=== PATIENT | female | born 1995 | race Caucasian/White ===

== ENCOUNTER 2016-09-03 15:48 | Emergency (ER) | payer OTHER ==
--- NOTE | 2016-09-03 17:26 | ED ---
Nausea/Vomiting/Diarrhea HPI - General Chief complaint: Nausea/Vomiting/Diarrhea Stated complaint: NVD Time Seen by Provider: 09/03/16 17:10 Source: patient, RN notes reviewed Mode of arrival: ambulatory Limitations: no limitations - History of Present Illness Initial comments: 20-year-old female presents emergency Department chief complaint nausea vomiting diarrhea. Patient states symptoms started yesterday. Patient vomited throughout the night. Patient states she started noticed some bright red blood. Patient states is on a small mom. Patient called her doctor who told her is most likely just related to the vomiting but she was still concerned. Patient denies any sick contacts. Patient denies fever, chills. She states she has some abdominal discomfort. Patient states that she thought she had some blood in her stool though she states she had 4 bowel movements that she did not know any blood. Patient denies any history of GI bleeds. Patient states she feels dehydrated. - Related Data Home Medications Medication Instructions Recorded Confirmed Insulin Glargine [Lantus] 30 unit SQ HS 09/22/14 09/03/16 Insulin Glulisine [Apidra] See Protocol SQ ACHS 09/22/14 09/03/16 Cyanocobalamin [Vitamin B-12] 500 mcg PO DAILY 09/03/16 09/03/16 lamoTRIgine [LaMICtal] 200 mg PO QAM 09/03/16 09/03/16 lamoTRIgine [LaMICtal] 300 mg PO HS 09/03/16 09/03/16 Previous Rx's Medication Instructions Recorded Ondansetron Odt [Zofran Odt] 4 mg PO Q8HR PRN #10 tab 09/03/16 Ranitidine HCl [Zantac] 150 mg PO BID #28 tab 09/03/16 Allergies Allergy/AdvReac Type Severity Reaction Status Date / Time No Known Allergies Allergy Verified 09/03/16 17:23 Review of Systems ROS Statement: Those systems with pertinent positive or pertinent negative responses have been documented in the HPI. ROS Other: All systems not noted in ROS Statement are negative. Past Medical History Past Medical History: Diabetes Mellitus, Seizure Disorder Additional Past Medical History / Comment(s): Type 1 diabetic History of Any Multi-Drug Resistant Organisms: None Reported Past Surgical History: Ear Surgery Past Anesthesia/Blood Transfusion Reactions: No Reported Reaction Past Psychological History: Bipolar, Depression Smoking Status: Never smoker Past Alcohol Use History: None Reported Past Drug Use History: None Reported - Past Family History Sister(s) Additional Family Medical History / Comment(s): brain tumor removed Mother Additional Family Medical History / Comment(s): ca General Exam Limitations: no limitations General appearance: alert, in no apparent distress Head exam: Present: atraumatic, normocephalic, normal inspection Respiratory exam: Present: normal lung sounds bilaterally. Absent: respiratory distress, wheezes, rales, rhonchi, stridor Cardiovascular Exam: Present: regular rate, normal rhythm, normal heart sounds. Absent: systolic murmur, diastolic murmur, rubs, gallop, clicks GI/Abdominal exam: Present: soft, tenderness (Minimal epigastric), normal bowel sounds. Absent: distended, guarding, rebound, rigid Back exam: Absent: CVA tenderness (R), CVA tenderness (L) Neurological exam: Present: alert, oriented X3, CN II-XII intact Course Vital Signs 09/03/16 15:50 Temperature 97.8 F Pulse Rate 100 Respiratory 20 Rate Blood Pressure 128/80 O2 Sat by Pulse 99 Oximetry Medical Decision Making - Medical Decision Making 20-year-old female presented for nausea vomiting diarrhea. Patient did have some bright red blood in her vomit per patient. Patient had no emesis here. Patient states she feels much improved hemoglobin is stable. Patient is acetone positive though her bicarb is within normal. Patient is not acidotic. Patient's blood glucose to 15 at this time. Patient was given 2 L of fluids patient is telling oral fluids in emergency department. Patient will be discharged. - Lab Data Result diagrams: 09/03/16 17:22 09/03/16 17:22 Lab Results 09/03/16 09/03/16 09/03/16 Range/Units 17:22 17:22 17:22 WBC 11.3 H (4.0-11.0) k/uL RBC 4.57 (3.80-5.40) m/uL Hgb 13.3 (11.4-16.0) gm/dL Hct 39.0 (34.0-46.0) % MCV 85.4 (80.0-100.0) fL MCH 29.1 (25.0-35.0) pg MCHC 34.0 (31.0-37.0) g/dL RDW 13.1 (11.5-15.5) % Plt Count 483 H (150-450) k/uL Neutrophils % 74 % Lymphocytes % 18 % Monocytes % 4 % Eosinophils % 2 % Basophils % 0 % Neutrophils # 8.4 H (1.3-7.7) k/uL Lymphocytes # 2.0 (1.0-4.8) k/uL Monocytes # 0.5 (0-1.0) k/uL Eosinophils # 0.2 (0-0.7) k/uL Basophils # 0.1 (0-0.2) k/uL Sodium 139 (137-145) mmol/L Potassium 4.8 (3.5-5.1) mmol/L Chloride 102 (98-107) mmol/L Carbon Dioxide 23 (22-30) mmol/L Anion Gap 14 mmol/L BUN 9 (7-17) mg/dL Creatinine 0.70 (0.52-1.04) mg/dL Est GFR (MDRD) Af Amer >60 (>60 ml/min/1.73 sqM) Est GFR (MDRD) Non-Af >60 (>60 ml/min/1.73 sqM) Glucose 317 H (74-99) mg/dL POC Glucose (mg/dL) (75-99) mg/dL POC Glu Dry Man ID Calcium 9.9 (8.4-10.2) mg/dL Total Bilirubin 0.7 (0.2-1.3) mg/dL AST 23 (14-36) U/L ALT 27 (9-52) U/L Alkaline Phosphatase 41 (38-126) U/L Total Protein 7.8 (6.3-8.2) g/dL Albumin 4.5 (3.5-5.0) g/dL Amylase 33 (30-110) U/L Lipase 28 (23-300) U/L Urine Color Yellow Urine Appearance Clear (Clear) Urine pH 6.5 (5.0-8.0) Ur Specific [place] 1.022 (1.001-1.035) Urine Protein Negative (Negative) Urine Glucose (UA) 4+ H (Negative) Urine Ketones 3+ H (Negative) Urine Blood Negative (Negative) Urine Nitrate Negative (Negative) Urine Bilirubin Negative (Negative) Urine Urobilinogen <2.0 (<2.0) mg/dL Ur Leukocyte Esterase Negative (Negative) Acetone, Qual (Negative) 09/03/16 09/03/16 Range/Units 17:22 18:44 WBC (4.0-11.0) k/uL RBC (3.80-5.40) m/uL Hgb (11.4-16.0) gm/dL Hct (34.0-46.0) % MCV (80.0-100.0) fL MCH (25.0-35.0) pg MCHC (31.0-37.0) g/dL RDW (11.5-15.5) % Plt Count (150-450) k/uL Neutrophils % % Lymphocytes % % Monocytes % % Eosinophils % % Basophils % % Neutrophils # (1.3-7.7) k/uL Lymphocytes # (1.0-4.8) k/uL Monocytes # (0-1.0) k/uL Eosinophils # (0-0.7) k/uL Basophils # (0-0.2) k/uL Sodium (137-145) mmol/L Potassium (3.5-5.1) mmol/L Chloride (98-107) mmol/L Carbon Dioxide (22-30) mmol/L Anion Gap mmol/L BUN (7-17) mg/dL Creatinine (0.52-1.04) mg/dL Est GFR (MDRD) Af Amer (>60 ml/min/1.73 sqM) Est GFR (MDRD) Non-Af (>60 ml/min/1.73 sqM) Glucose (74-99) mg/dL POC Glucose (mg/dL) 215 H (75-99) mg/dL POC Glu Dry Man ID Vivian, Megan Calcium (8.4-10.2) mg/dL Total Bilirubin (0.2-1.3) mg/dL AST (14-36) U/L ALT (9-52) U/L Alkaline Phosphatase (38-126) U/L Total Protein (6.3-8.2) g/dL Albumin (3.5-5.0) g/dL Amylase (30-110) U/L Lipase (23-300) U/L Urine Color Urine Appearance (Clear) Urine pH (5.0-8.0) Ur Specific [place] (1.001-1.035) Urine Protein (Negative) Urine Glucose (UA) (Negative) Urine Ketones (Negative) Urine Blood (Negative) Urine Nitrate (Negative) Urine Bilirubin (Negative) Urine Urobilinogen (<2.0) mg/dL Ur Leukocyte Esterase (Negative) Acetone, Qual Positive (Negative) Disposition Clinical Impression: Gastroenteritis, Hyperglycemia Disposition: HOME SELF-CARE Condition: Stable Instructions: Gastroenteritis (ED) Additional Instructions: Please return to the Emergency Department if symptoms worsen or any other concerns. Prescriptions: Ondansetron Odt [Zofran Odt] 4 mg PO Q8HR PRN #10 tab PRN Reason: Nausea Ranitidine HCl [Zantac] 150 mg PO BID #28 tab Time of Disposition: 18:50
[2016-09-03] MEDS: SODIUM CHLORIDE 0.9% 2,000 ML IV STA (17:29)
[2016-09-03] MEDS: ONDANSETRON 4 MG/2 ML VIAL IVP STA (17:30)
[2016-09-03] MEDS: PANTOPRAZOLE 40 MG/10 ML VIAL IVP ONE (17:34)
[2016-09-03 17:41] LABS: Basophils # (A) 0.1 k/uL (0-0.2); Basophils % (A) 0 %; CH 28.9; Eosinophils # (A) 0.2 k/uL (0-0.7); Eosinophils % (A) 2 %; HDW 2.56; HGB 13.3 gm/dL (11.4-16.0); Luc # (Auto) 0.15; Luc % (Auto) 1; Lymphocytes % (A) 18 %; MCH 29.1 pg (25.0-35.0); MCV 85.4 fL (80.0-100.0); Monocytes # (A) 0.5 k/uL (0-1.0); Monocytes % (A) 4 %; Neutrophils # (A) 8.4 k/uL (1.3-7.7); Neutrophils % (A) 74 %; RBC 4.57 m/uL (3.80-5.40); RDW 13.1 % (11.5-15.5); WBC 11.3 k/uL (4.0-11.0); WBC (Perox) 11.47
[2016-09-03 17:42] LABS: Appearance,Urine Clear (Clear); Bilirubin,Urine Negative (Negative); Glucose,Urine (UA) 4+ (Negative); Leukocyte Esterase,Urine Negative (Negative); Nitrite,Urine Negative (Negative); PH, Urine 6.5 (5.0-8.0); Protein,Urine Negative (Negative); Specific Gravity,Urine 1.022 (1.001-1.035); UA Billing (MACRO vs. MICRO) CHEM; Urobilinogen,Urine <2.0 mg/dL (<2.0)
[2016-09-03 17:55] LABS: Ketones,Urine 3+ (Negative)
[2016-09-03 18:26] LABS: ALT 27 U/L (9-52); AST 23 U/L (14-36); Alkaline Phosphatase 41 U/L (38-126); Amylase 33 U/L (30-110); Anion Gap 14 mmol/L; Blood Urea Nitrogen 9 mg/dL (7-17); Calcium 9.9 mg/dL (8.4-10.2); Carbon Dioxide 23 mmol/L (22-30); Chloride 102 mmol/L (98-107); Glucose 317 mg/dL (74-99); Non-African American GFR(MDRD) >60 (>60 ml/min/1.73 sqM); Potassium 4.8 mmol/L (3.5-5.1); Sodium 139 mmol/L (137-145); Total Bilirubin 0.7 mg/dL (0.2-1.3); Total Protein 7.8 g/dL (6.3-8.2)
[2016-09-03 18:46] LABS: Glucose,Whole Blood 215 mg/dL (75-99)
[2016-09-03 19:22] LABS: Glucose,Whole Blood 183 mg/dL (75-99)
[2016-09-03] MEDS: ACETAMINOPHEN TAB 500 MG TAB PO STA (19:22)
[2016-09-03 20:33] VITALS: BP 117/69; PULSE 76; RESP 16; TEMP 97.5
== END 2016-09-03 20:32 | disposition home or self-care (01) ==
LOC: EC 15:48
DX: K52.9 Noninfective gastroenteritis and colitis, unspecified (principal); E11.65 Type 2 diabetes mellitus with hyperglycemia; R10.13 Epigastric pain; G40.909 Epilepsy, unspecified, not intractable, without status epilepticus; Z79.4 Long term (current) use of insulin; Z79.899 Other long term (current) drug therapy
CPT/HCPCS: 36415; 80053; 82150; 82009; 83690; 85025; 81003; 99284; 96374; 96375; 96361; J2405; C9113

== ENCOUNTER 2017-03-28 06:38 | Day surgery (SDC) | payer OTHER ==
[2017-03-25 13:10] VITALS: BMI 34.2
[~2017-03-28 06:38] MED LIST: DEXAMETHASONE SOD PHOSPHATE 10 MG/ML 1 ML VIAL IV ONE; HEPARIN SODIUM,PORCINE 5,000 UNIT/ML 1 ML VIAL SQ ONE; HYDROmorphone 1 MG/ML 1 ML SYRINGE IVP PRN; LACTATED RINGERS 1,000 ML IV SCH; LIDOCAINE 1% 20 ML VIAL (10MG/ML) FOR IV START INTRADERMA PRN; Pre Op ABX Message 1 EACH MISC MISCELLANE ONE; SCOPOLAMINE 1.5MG/72HR PATCH TRANSDERM ONE
[2017-03-28 07:13] VITALS: RESP 16
[2017-03-28 07:22] LABS: Glucose,Whole Blood 227 mg/dL (75-99)
[2017-03-28] MEDS ORDERED: ONDANSETRON 4 MG/2 ML VIAL IVP ONE (07:29)
[2017-03-28] MEDS ORDERED: lamoTRIgine 100 MG TAB PO STA (07:40)
[2017-03-28] MEDS ORDERED: PROPOFOL 10 MG/ML 20 ML VIAL IV ONE (08:06)
[2017-03-28] MEDS ORDERED: BUPIVACAINE (PF) 0.25% 30 ML VIAL SQ ONE (08:06)
[2017-03-28] MEDS ORDERED: MIDAZOLAM 2 MG/2 ML VIAL ONE (08:06)
[2017-03-28] MEDS ORDERED: KETOROLAC 30 MG/ML 1 ML VIAL ONE (08:06)
[2017-03-28] MEDS ORDERED: fentaNYL (PF) 50 MCG/ML 2 ML AMP ONE (08:06)
[2017-03-28] MEDS ORDERED: LIDOCAINE 1% INJ 10MG/ML (20 ML MDV) ONE (08:06)
[2017-03-28] MEDS ORDERED: NALOXONE 0.4 MG/ML 1 ML VIAL IV PRN (08:39)
[2017-03-28 09:01] LABS: Glucose,Whole Blood 220 mg/dL (75-99)
--- NOTE | 2017-03-28 09:01 | P.PCN ---
Date of Procedure: 03/28/17 Procedure(s) Performed: PREOPERATIVE DIAGNOSIS: Left arm foreign body POSTOPERATIVE DIAGNOSIS: Same PROCEDURE: Excision SURGEON: Oliva EBL: Minimal ANESTHESIA: General COMPLICATIONS: None OPERATIVE PROCEDURE: She is placed in the operating table in the supine position. The patient's arm was prepped and draped in the usual sterile fashion. Using the C-arm I was able to identify the location of the foreign body distal to the insertion scar. The previous scar was re-incised. Using blunt dissection and some electrocautery and was able to identify the foreign body and this was removed without difficulty. C-arm was then used to prove that no additional foreign bodies were present. The subcutaneous tissues were closed using 3-0 Vicryl sutures and the skin using 4-0 Monocryl sutures. Steri- Strips and sterile dressings were applied. DISPOSITION: Stable to recovery room
[2017-03-28 09:05] VITALS: TEMP 97.1
--- NOTE | 2017-03-28 09:20 | FL ---
Fluoroscopy INDICATION: Pain FINDINGS: Fluoroscopy time: 24 seconds. Images obtained: 1. IMPRESSIONS: 1. Documentation of fluoroscopy.
[2017-03-28] MEDS ORDERED: INSULIN REGULAR 100 UNIT/ML VIAL SQ ONE (09:38)
[2017-03-28] MEDS ORDERED: LACTATED RINGERS 1,000 ML IV ONE (09:53)
[2017-03-28 10:09] VITALS: BP 124/83; PULSE 73
== END 2017-03-28 10:54 | disposition home or self-care (01) ==
LOC: OR 06:38
PROVIDERS: ATTEND Surgery
DX: S40.852A Superficial foreign body of left upper arm, initial encounter (principal); X58.XXXA Exposure to other specified factors, initial encounter; E11.9 Type 2 diabetes mellitus without complications; Z79.4 Long term (current) use of insulin; G40.909 Epilepsy, unspecified, not intractable, without status epilepticus; Z79.899 Other long term (current) drug therapy
CPT/HCPCS: 81025; 24200; J2250; J1644; J2405; J2001; J3010; J1885; J2704

== ENCOUNTER 2018-01-18 14:08 | Emergency (ER) | payer OTHER ==
[2018-01-18 14:19] VITALS: RESP 18
[2018-01-18] MEDS ORDERED: SODIUM CHLORIDE 0.9% 2,000 ML IV STA (14:23)
[2018-01-18] MEDS ORDERED: ONDANSETRON 4 MG/2 ML VIAL IVP STA (14:23)
[2018-01-18 14:51] LABS: Basophils % (A) 0 %; Eosinophils # (A) 0.1 k/uL (0-0.7); Eosinophils % (A) 0 %; HCT 40.8 % (34.0-46.0); HGB 13.6 gm/dL (11.4-16.0); Lymphocytes % (A) 7 %; MCH 28.1 pg (25.0-35.0); MCHC 33.4 g/dL (31.0-37.0); MCV 84.1 fL (80.0-100.0); Mean Platelet Volume 6.7; Monocytes # (A) 0.5 k/uL (0-1.0); Monocytes % (A) 3 %; Neutrophils # (A) 13.4 k/uL (1.3-7.7); Neutrophils % (A) 89 %; Platelet Count 443 k/uL (150-450); RBC 4.85 m/uL (3.80-5.40); RDW 13.1 % (11.5-15.5)
[2018-01-18 15:02] LABS: ALT 28 U/L (9-52); AST 25 U/L (14-36); Albumin 4.6 g/dL (3.5-5.0); Alkaline Phosphatase 34 U/L (38-126); Amylase 45 U/L (30-110); Anion Gap 9 mmol/L; Blood Urea Nitrogen 11 mg/dL (7-17); Carbon Dioxide 22 mmol/L (22-30); Chloride 110 mmol/L (98-107); Glucose 133 mg/dL (74-99); Lipase 26 U/L (23-300); Potassium 4.4 mmol/L (3.5-5.1); Sodium 141 mmol/L (137-145); Total Bilirubin 0.5 mg/dL (0.2-1.3); Total Protein 7.7 g/dL (6.3-8.2)
--- NOTE | 2018-01-18 16:22 | ED ---
Nausea/Vomiting/Diarrhea HPI - General Chief complaint: Nausea/Vomiting/Diarrhea Stated complaint: Nausea/vomiting Time Seen by Provider: 01/18/18 14:23 Source: patient, EMS, RN notes reviewed Mode of arrival: EMS Limitations: no limitations - History of Present Illness Initial comments: This is a 22-year-old female presents emergency Department from [facility] for nausea vomiting. Patient was sent here via EMS as she was found to have ketonuria and blood sugar 160 at [facility]. Patient states that she has not felt well over the last couple days has had some nausea but has been vomiting several times morning decided to urgent care for antinausea medication. She states this started after having a drink on Friday night. She reports no fever no chills no abdominal pain at this time. Patient denies any dysuria, hematuria , fever, chills, URI symptoms. Denies any sick contacts. - Related Data Home Medications Medication Instructions Recorded Confirmed Insulin Glargine [Lantus] 30 unit SQ HS 09/22/14 03/28/17 Insulin Glulisine [Apidra] See Protocol SQ ACHS 09/22/14 03/28/17 Cyanocobalamin [Vitamin B-12] 500 mcg PO DAILY 09/03/16 03/28/17 lamoTRIgine [LaMICtal] 200 mg PO QAM 09/03/16 03/28/17 lamoTRIgine [LaMICtal] 300 mg PO HS 09/03/16 03/28/17 Previous Rx's Medication Instructions Recorded Ondansetron Odt [Zofran Odt] 4 mg PO Q8HR PRN #10 tab 09/03/16 Ranitidine HCl [Zantac] 150 mg PO BID #28 tab 09/03/16 traMADol HCl [Ultram] 50 mg PO Q6H PRN #20 tab 03/28/17 Ondansetron Odt [Zofran Odt] 4 mg PO Q8HR PRN #10 tab 01/18/18 Allergies Allergy/AdvReac Type Severity Reaction Status Date / Time No Known Allergies Allergy Verified 09/03/16 17:23 Review of Systems ROS Statement: Those systems with pertinent positive or pertinent negative responses have been documented in the HPI. ROS Other: All systems not noted in ROS Statement are negative. Past Medical History Past Medical History: Diabetes Mellitus, Seizure Disorder Additional Past Medical History / Comment(s): Type 1 diabetic History of Any Multi-Drug Resistant Organisms: None Reported Past Surgical History: Ear Surgery Additional Past Surgical History / Comment(s): TUBES IN EAR INFANT, surgically removed birthcontrol from left upper arm Past Anesthesia/Blood Transfusion Reactions: Postoperative Nausea & Vomiting ( PONV) Past Psychological History: Anxiety, Bipolar, Depression Smoking Status: Never smoker Past Alcohol Use History: None Reported, Occasional Past Drug Use History: Marijuana - Past Family History Sister(s) Additional Family Medical History / Comment(s): brain tumor removed Mother Family Medical History: Cancer Additional Family Medical History / Comment(s): ca Father Family Medical History: Seizure Disorder General Exam Limitations: no limitations General appearance: alert, in no apparent distress Head exam: Present: atraumatic, normocephalic, normal inspection Eye exam: Present: normal appearance, PERRL, EOMI. Absent: scleral icterus, conjunctival injection, periorbital swelling ENT exam: Present: normal exam, normal oropharynx, mucous membranes moist, TM's normal bilaterally, normal external ear exam Neck exam: Present: normal inspection, full ROM. Absent: tenderness, meningismus, lymphadenopathy Respiratory exam: Present: normal lung sounds bilaterally. Absent: respiratory distress, wheezes, rales, rhonchi, stridor Cardiovascular Exam: Present: regular rate, normal rhythm, normal heart sounds. Absent: systolic murmur, diastolic murmur, rubs, gallop, clicks GI/Abdominal exam: Present: soft, normal bowel sounds. Absent: distended, tenderness, guarding, rebound, rigid Neurological exam: Present: alert, oriented X3, CN II-XII intact Skin exam: Present: warm, dry, intact, normal color. Absent: rash Course Vital Signs 01/18/18 14:15 Temperature 97.6 F Pulse Rate 91 Respiratory 18 Rate Blood Pressure 140/75 O2 Sat by Pulse 96 Oximetry Medical Decision Making - Medical Decision Making 22-year-old female presented for hyperglycemia nausea vomiting. Patient was hydrated blood sugar currently is 133. She does feel improved after IV fluids. This most likely is related to gastroenteritis. Patient we discharged with Zofran return parameters were discussed. - Lab Data Result diagrams: 01/18/18 14:30 01/18/18 14:30 Lab Results 01/18/18 01/18/18 01/18/18 Range/Units 14:30 14:30 16:05 WBC 15.0 H (3.8-10.6) k/uL RBC 4.85 (3.80-5.40) m/uL Hgb 13.6 (11.4-16.0) gm/dL Hct 40.8 (34.0-46.0) % MCV 84.1 (80.0-100.0) fL MCH 28.1 (25.0-35.0) pg MCHC 33.4 (31.0-37.0) g/dL RDW 13.1 (11.5-15.5) % Plt Count 443 (150-450) k/uL Neutrophils % 89 % Lymphocytes % 7 % Monocytes % 3 % Eosinophils % 0 % Basophils % 0 % Neutrophils # 13.4 H (1.3-7.7) k/uL Lymphocytes # 1.0 (1.0-4.8) k/uL Monocytes # 0.5 (0-1.0) k/uL Eosinophils # 0.1 (0-0.7) k/uL Basophils # 0.0 (0-0.2) k/uL Sodium 141 (137-145) mmol/L Potassium 4.4 (3.5-5.1) mmol/L Chloride 110 H (98-107) mmol/L Carbon Dioxide 22 (22-30) mmol/L Anion Gap 9 mmol/L BUN 11 (7-17) mg/dL Creatinine 0.66 (0.52-1.04) mg/dL Est GFR (CKD-EPI)AfAm >90 (>60 ml/min/1.73 sqM) Est GFR (CKD-EPI)NonAf >90 (>60 ml/min/1.73 sqM) Glucose 133 H (74-99) mg/dL Calcium 10.0 (8.4-10.2) mg/dL Total Bilirubin 0.5 (0.2-1.3) mg/dL AST 25 (14-36) U/L ALT 28 (9-52) U/L Alkaline Phosphatase 34 L (38-126) U/L Total Protein 7.7 (6.3-8.2) g/dL Albumin 4.6 (3.5-5.0) g/dL Amylase 45 (30-110) U/L Lipase 26 (23-300) U/L Urine Color Yellow Urine Appearance Cloudy H (Clear) Urine pH 7.5 (5.0-8.0) Ur Specific [place] 1.020 (1.001-1.035) Urine Protein Negative (Negative) Urine Glucose (UA) Negative (Negative) Urine Blood Negative (Negative) Urine Nitrite Negative (Negative) Urine Bilirubin Negative (Negative) Urine Urobilinogen <2.0 (<2.0) mg/dL Ur Leukocyte Esterase Small H (Negative) Urine RBC 3 (0-5) /hpf Urine WBC 18 H (0-5) /hpf Ur Squamous Epith Cells 34 H (0-4) /hpf Amorphous Sediment Rare H (None) /hpf Urine Bacteria Occasional H (None) /hpf Hyaline Casts 2 (0-2) /lpf Urine Mucus Rare H (None) /hpf Urine HCG, Qual (Not Detectd) Acetone, Qual Negative (Negative) 01/18/18 Range/Units 16:05 WBC (3.8-10.6) k/uL RBC (3.80-5.40) m/uL Hgb (11.4-16.0) gm/dL Hct (34.0-46.0) % MCV (80.0-100.0) fL MCH (25.0-35.0) pg MCHC (31.0-37.0) g/dL RDW (11.5-15.5) % Plt Count (150-450) k/uL Neutrophils % % Lymphocytes % % Monocytes % % Eosinophils % % Basophils % % Neutrophils # (1.3-7.7) k/uL Lymphocytes # (1.0-4.8) k/uL Monocytes # (0-1.0) k/uL Eosinophils # (0-0.7) k/uL Basophils # (0-0.2) k/uL Sodium (137-145) mmol/L Potassium (3.5-5.1) mmol/L Chloride (98-107) mmol/L Carbon Dioxide (22-30) mmol/L Anion Gap mmol/L BUN (7-17) mg/dL Creatinine (0.52-1.04) mg/dL Est GFR (CKD-EPI)AfAm (>60 ml/min/1.73 sqM) Est GFR (CKD-EPI)NonAf (>60 ml/min/1.73 sqM) Glucose (74-99) mg/dL Calcium (8.4-10.2) mg/dL Total Bilirubin (0.2-1.3) mg/dL AST (14-36) U/L ALT (9-52) U/L Alkaline Phosphatase (38-126) U/L Total Protein (6.3-8.2) g/dL Albumin (3.5-5.0) g/dL Amylase (30-110) U/L Lipase (23-300) U/L Urine Color Urine Appearance (Clear) Urine pH (5.0-8.0) Ur Specific [place] (1.001-1.035) Urine Protein (Negative) Urine Glucose (UA) (Negative) Urine Blood (Negative) Urine Nitrite (Negative) Urine Bilirubin (Negative) Urine Urobilinogen (<2.0) mg/dL Ur Leukocyte Esterase (Negative) Urine RBC (0-5) /hpf Urine WBC (0-5) /hpf Ur Squamous Epith Cells (0-4) /hpf Amorphous Sediment (None) /hpf Urine Bacteria (None) /hpf Hyaline Casts (0-2) /lpf Urine Mucus (None) /hpf Urine HCG, Qual Not Detected (Not Detectd) Acetone, Qual (Negative) Disposition Clinical Impression: Gastroenteritis, Diabetes Disposition: HOME SELF-CARE Condition: Stable Instructions: Acute Nausea and Vomiting (ED) Additional Instructions: Please return to the Emergency Department if symptoms worsen or any other concerns. Prescriptions: Ondansetron Odt [Zofran Odt] 4 mg PO Q8HR PRN #10 tab PRN Reason: Nausea Is patient prescribed a controlled substance at d/c from ED?: No Referrals: Williams Short MD [Primary Care Provider] - 1-2 days Time of Disposition: 16:29
[2018-01-18 16:23] LABS: Amorphous Sediment,Urine Rare /hpf; Appearance,Urine Cloudy (Clear); Bacteria,Urine Occasional /hpf; Bilirubin,Urine Negative (Negative); Blood,Urine Negative (Negative); Color,Urine Yellow; Glucose,Urine (UA) Negative (Negative); Hyaline Casts,Urine 2 /lpf (0-2); Ketones,Urine 3+ (Negative); Leukocyte Esterase,Urine Small (Negative); Mucus,Urine Rare /hpf; Nitrite,Urine Negative (Negative); PH, Urine 7.5 (5.0-8.0); Protein,Urine Negative (Negative); RBC,Urine 3 /hpf (0-5); Squamous Epithelial Cell,Urine 34 /hpf (0-4); Urobilinogen,Urine <2.0 mg/dL (<2.0); WBC,Urine 18 /hpf (0-5)
[2018-01-18] MEDS ORDERED: ONDANSETRON 4 MG ODT STARTER PACK 2 TAB BTL PO STA (16:28)
[2018-01-18 16:42] VITALS: BP 144/74; PULSE 84; TEMP 98
== END 2018-01-18 16:43 | disposition home or self-care (01) ==
LOC: EC 14:08
DX: K52.9 Noninfective gastroenteritis and colitis, unspecified (principal); E10.9 Type 1 diabetes mellitus without complications; G40.909 Epilepsy, unspecified, not intractable, without status epilepticus; F41.9 Anxiety disorder, unspecified; F31.9 Bipolar disorder, unspecified; Z79.4 Long term (current) use of insulin; Z79.899 Other long term (current) drug therapy
CPT/HCPCS: 36415; 80053; 82150; 82009; 83690; 85025; 81001; 81025; 99284; 96374; 96361 ×2; J2405; S0119

== ENCOUNTER 2022-07-19 14:02 | Emergency (ER) | payer OTHER ==
[2022-07-19 16:00] LABS: Basophils % (A) 0 %; Eosinophils # (A) 0.2 k/uL (0-0.7); Eosinophils % (A) 1 %; HCT 36.7 % (34.0-46.0); HGB 12.8 gm/dL (11.4-16.0); Lymphocytes % (A) 14 %; MCH 29.8 pg (25.0-35.0); MCHC 34.9 g/dL (31.0-37.0); MCV 85.6 fL (80.0-100.0); Mean Platelet Volume 7.3; Monocytes # (A) 0.6 k/uL (0-1.0); Monocytes % (A) 4 %; Neutrophils # (A) 11.5 k/uL (1.3-7.7); Neutrophils % (A) 80 %; Platelet Count 409 k/uL (150-450); RBC 4.28 m/uL (3.80-5.40); RDW 12.3 % (11.5-15.5); WBC 14.3 k/uL (3.8-10.6)
--- NOTE | 2022-07-19 16:00 | US ---
EXAMINATION TYPE: Transabdominal DATE OF EXAM: 07/19/2022 3:49 PM COMPARISON: NONE CLINICAL HISTORY: vaginal bleeding. Pt states light vaginal bleeding that started today EXAM PERFORMED: Transabdominal (TA) EXAM MEASUREMENTS: GESTATIONAL AGE / DATING Physician Established: (11 weeks/3 days) EDC: 02/04/2023 Dates by LMP: LMP unknown Dates by First Scan: No previous this is first scan Dates by Current Scan for: (9 weeks/1 days) EDC: 02/20/2023 MATERNAL ANATOMY Uterus: 8.9 x 6.3 x 8.4 cm Right Ovary: 2.9 x 2.1 x 2.5 cm Left Ovary: 3.4 x 2.1 x 2.6 cm Post CDS / Adnexa: wnl Presence of free fluid: No Presence of corpus luteal cyst: Left Ovary= 1.9 x 1.5 x 1.9 cm Presence of subchorionic bleed: No GESTATION / SURVEY CRL: 2.5 cm (9 weeks/1 days) MSD: wnl Yolk Sac (normal less than 6mm): 3mm Heart Rate: 181 bpm Rhythm: Normal IUP: Viable IUP Single, viable IUP/ No abnormality visualized to account for pt's bleeding IMPRESSION: Single viable intrauterine gestation with estimated gestational age of 9 weeks 1 day and estimated du e date of 02/20/2023.
[2022-07-19 16:01] LABS: Appearance,Urine Clear (Clear); Bacteria,Urine Occasional /hpf; Bilirubin,Urine Negative (Negative); Blood,Urine Negative (Negative); Color,Urine Light Yellow; Glucose,Urine (UA) 4+ (Negative); Ketones,Urine 1+ (Negative); Leukocyte Esterase,Urine Small (Negative); Mucus,Urine Rare /hpf; Nitrite,Urine Negative (Negative); Protein,Urine Negative (Negative); RBC,Urine 1 /hpf (0-5); Specific Gravity,Urine 1.014 (1.001-1.035); Squamous Epithelial Cell,Urine 2 /hpf (0-4); Urobilinogen,Urine <2.0 mg/dL (<2.0); WBC,Urine 8 /hpf (0-5)
[2022-07-19] MEDS ORDERED: CEPHALEXIN 250 MG CAP PO STA (16:09)
[2022-07-19 16:13] LABS: ALT 24 U/L (4-34); AST 26 U/L (14-36); Albumin 4.2 g/dL (3.5-5.0); Alkaline Phosphatase 20 U/L (38-126); Anion Gap 8 mmol/L; Carbon Dioxide 22 mmol/L (22-30); Chloride 103 mmol/L (98-107); Glucose 239 mg/dL (74-99); Sodium 133 mmol/L (137-145)
[2022-07-19 16:15] LABS: African American GFR (CKD) >90 (>60 ml/min/1.73 sqM); Blood Urea Nitrogen 12 mg/dL (7-17); Calcium 9.5 mg/dL (8.4-10.2); Non-African American GFR(CKD) >90 (>60 ml/min/1.73 sqM); Potassium 4.1 mmol/L (3.5-5.1); Total Bilirubin 0.4 mg/dL (0.2-1.3); Total Protein 7.1 g/dL (6.3-8.2)
--- NOTE | 2022-07-19 16:33 | ED ---
Female Urogenital HPI - General Chief complaint: Vaginal Bleeding Stated complaint: 9 weeks preg, vaginal bleeding Time Seen by Provider: 07/19/22 15:03 Source: patient Mode of arrival: ambulatory Limitations: no limitations - History of Present Illness Initial comments: Patient is a 26-year-old A0 female at 9 weeks who presents to the emergency department with a chief complaint vaginal bleeding. Patient states while wiping after urinating today she noticed pink tinge on the toilet paper. She did not have further bleeding after this episode. She denies fever, chills, abdominal pain, nausea, vomiting, vaginal discharge. She does admit to burning with urination. Patient follows with an OB specialist in [place] due to history of seizures and type 1 diabetes. States she has had a normal ultrasound previously. - Related Data Home Medications Medication Instructions Recorded Confirmed Insulin Glargine [Lantus Vial] 30 unit SQ HS 09/22/14 03/28/17 Insulin Glulisine [Apidra] See Protocol SQ ACHS 09/22/14 03/28/17 Cyanocobalamin [Vitamin B-12] 500 mcg PO DAILY 09/03/16 03/28/17 lamoTRIgine [LaMICtal] 200 mg PO QAM 09/03/16 03/28/17 lamoTRIgine [LaMICtal] 300 mg PO HS 09/03/16 03/28/17 Previous Rx's Medication Instructions Recorded Ondansetron Odt [Zofran Odt] 4 mg PO Q8HR PRN #10 tab 09/03/16 Ranitidine HCl [Zantac] 150 mg PO BID #28 tab 09/03/16 traMADol HCl [Ultram] 50 mg PO Q6H PRN #20 tab 03/28/17 Ondansetron Odt [Zofran Odt] 4 mg PO Q8HR PRN #10 tab 01/18/18 Cephalexin [Keflex] 250 mg PO Q6HR #20 cap 07/19/22 Allergies Allergy/AdvReac Type Severity Reaction Status Date / Time No Known Allergies Allergy Verified 07/19/22 14:35 Review of Systems ROS Statement: Those systems with pertinent positive or pertinent negative responses have been documented in the HPI. ROS Other: All systems not noted in ROS Statement are negative. Past Medical History Past Medical History: Diabetes Mellitus, Seizure Disorder Additional Past Medical History / Comment(s): Type 1 diabetic History of Any Multi-Drug Resistant Organisms: None Reported Past Surgical History: Ear Surgery Additional Past Surgical History / Comment(s): TUBES IN EAR , surgically removed birthcontrol from left upper arm Past Anesthesia/Blood Transfusion Reactions: Postoperative Nausea & Vomiting (PONV) Past Psychological History: Anxiety, Bipolar, Depression Smoking Status: Never smoker Past Alcohol Use History: None Reported, Occasional Past Drug Use History: Marijuana - Past Family History Sister(s) Additional Family Medical History / Comment(s): brain tumor removed Mother Family Medical History: Cancer Additional Family Medical History / Comment(s): ca Father Family Medical History: Seizure Disorder General Exam Limitations: no limitations General appearance: alert, in no apparent distress Respiratory exam: Present: normal lung sounds bilaterally. Absent: respiratory distress, wheezes, rales, rhonchi, stridor Cardiovascular Exam: Present: regular rate, normal rhythm, normal heart sounds. Absent: systolic murmur, diastolic murmur, rubs, gallop, clicks Neurological exam: Present: alert, oriented X3, CN II-XII intact Psychiatric exam: Present: normal affect, normal mood Skin exam: Present: warm, dry, intact, normal color. Absent: rash Course Vital Signs 07/19/22 14:33 Temperature 98.4 F Pulse Rate 93 Respiratory 20 Rate Blood Pressure 113/67 O2 Sat by Pulse 99 Oximetry Medical Decision Making - Medical Decision Making Was pt. sent in by a medical professional or institution (CATHI Galan, [employer], urgent care, hospital, or custodial...) When possible be specific @ -[No] Did you speak to anyone other than the patient for history (EMS, parent, family, police, friend...)? What history was obtained from this source @ -[No] Did you review nursing and triage notes (agree or disagree)? Why? @ -[I reviewed and agree with nursing and triage notes] Were old charts reviewed (outside hosp., previous admission, EMS record, old EKG, old radiological studies, urgent care reports/EKG's, custodial records)? Report findings @ -[No old charts were reviewed] Differential Diagnosis (chest pain, altered mental status, abdominal pain women, abdominal pain men, vaginal bleeding, weakness, fever, dyspnea, syncope, headache, dizziness, GI bleed, back pain, seizure, CVA, palpatations, mental health)? @ -UTI, threatened , incomplete EKG interpreted by me (3pts min.). @ -[As above] X-rays interpreted by me (1pt min.). @ -[None done] CT interpreted by me (1pt min.). @ -[None done] U/S interpreted by me (1pt. min.). @ - ultrasound shows a single live IUP What testing was considered but not performed or refused? (CT, X-rays, U/S, labs)? Why? @ -[None] What meds were considered but not given or refused? Why? @ -[None] Did you discuss the management of the patient with other professionals (professionals i.e. , PA, SP[employer]ING [employer] TENDER, lab, RT, psych nurse, social sciences chair, captain fire prevention bureau, teacher, transport corps officer, post office manager)? Give summary @ -[No] Was smoking cessation discussed for >3mins.? @ -[No] Was critical care preformed (if so, how long)? @ -[No] Were there social determinants of health that impacted care today? How? (Homelessness, low income, unemployed, alcoholism, drug addiction, transportation, low edu. Level, literacy, decrease access to med. care, snf, rehab)? @ -[No] Was there de-escalation of care discussed even if they declined (Discuss DNR or withdrawal of care, Hospice)? DNR status @ -[No] What co-morbidities impacted this encounter? (DM, HTN, Smoking, COPD, CAD, Canc er, CVA, ARF, Chemo, Hep., AIDS, mental health diagnosis, sleep apnea, morbid obesity)? @ -DM type 1 Was patient admitted / discharged? Hospital course, mention meds given and route, prescriptions, significant lab abnormalities, going to OR and other pertinent info. @ -This is a 26-year-old female presenting for vaginal bleeding.La boratory studies obtained. There is mild leukocytosis of 14.3. Serum beta hCG is 82,337. Urinalysis does reveal rare bacteria, 1+ ketones, 4+ glucose. The ultrasound reveals a single live IUP. Results discussed with patient. Patient will be discharged with him for repeat beta hCG in 48 hours. RhoGAM not indicated. She will be started on Keflex for UTI. She will follow-up with her [employer] regarding today's visit and hyperglycemia in . Undiagnosed new problem with uncertain prognosis? @ -[No] Drug Therapy requiring intensive monitoring for toxicity (Heparin, Nitro, Insulin, Cardizem)? @ -[No] Were any procedures done? @ -[No] Diagnosis/symptom? @ -threatened miscarriage Acute, or Chronic, or Acute on Chronic? @ -acute Uncomplicated (without systemic symptoms) or Complicated (systemic symptoms)? @ -uncomplicated Side effects of treatment? @ -[No] Exacerbation, Progression, or Severe Exacerbation? @ -[No] Poses a threat to life or bodily function? How? (Chest pain, [place], MA, pneumonia, PE, COPD, DKA, ARF, appy, cholecystitis, CVA, Diverticulitis, Homicidal, Suicidal, threat to staff... and all critical care pts) @ -[No] Diagnosis/symptom? @ -[default] Acute, or Chronic, or Acute on Chronic? @ -UTI in Uncomplicated (without systemic symptoms) or Complicated (systemic symptoms)? @ -[default] Side effects of treatment? @ -[none] Exacerbation, Progression, or Severe Exacerbation] @ -[no] Poses a threat to life or bodily function? @ -[no] Dr. Sen is my attending. - Lab Data Result diagrams: 07/19/22 15:32 07/19/22 15:32 Lab Results 07/19/22 07/19/22 07/19/22 Range/Units 15:06 15:32 15:32 WBC 14.3 H (3.8-10.6) k/uL RBC 4.28 (3.80-5.40) m/uL Hgb 12.8 (11.4-16.0) gm/dL Hct 36.7 (34.0-46.0) % MCV 85.6 (80.0-100.0) fL MCH 29.8 (25.0-35.0) pg MCHC 34.9 (31.0-37.0) g/dL RDW 12.3 (11.5-15.5) % Plt Count 409 (150-450) k/uL MPV 7.3 Neutrophils % 80 % Lymphocytes % 14 % Monocytes % 4 % Eosinophils % 1 % Basophils % 0 % Neutrophils # 11.5 H (1.3-7.7) k/uL Lymphocytes # 2.0 (1.0-4.8) k/uL Monocytes # 0.6 (0-1.0) k/uL Eosinophils # 0.2 (0-0.7) k/uL Basophils # 0.0 (0-0.2) k/uL Sodium 133 L (137-145) mmol/L Potassium 4.1 (3.5-5.1) mmol/L Chloride 103 (98-107) mmol/L Carbon Dioxide 22 (22-30) mmol/L Anion Gap 8 mmol/L BUN 12 (7-17) mg/dL Creatinine 0.51 L (0.52-1.04) mg/dL Est GFR (CKD-EPI)AfAm >90 (>60 ml/min/1.73 sqM) Est GFR (CKD-EPI)NonAf >90 (>60 ml/min/1.73 sqM) Glucose 239 H (74-99) mg/dL Calcium 9.5 (8.4-10.2) mg/dL Total Bilirubin 0.4 (0.2-1.3) mg/dL AST 26 (14-36) U/L ALT 24 (4-34) U/L Alkaline Phosphatase 20 L (38-126) U/L Total Protein 7.1 (6.3-8.2) g/dL Albumin 4.2 (3.5-5.0) g/dL HCG, Quant 60221.1 mIU/mL Urine Color Urine Appearance (Clear) Urine pH (5.0-8.0) Ur Specific [place] (1.001-1.035) Urine Protein (Negative) Urine Glucose (UA) (Negative) Urine Ketones (Negative) Urine Blood (Negative) Urine Nitrite (Negative) Urine Bilirubin (Negative) Urine Urobilinogen (<2.0) mg/dL Ur Leukocyte Esterase (Negative) Urine RBC (0-5) /hpf Urine WBC (0-5) /hpf Ur Squamous Epith Cells (0-4) /hpf Urine Bacteria (None) /hpf Urine Mucus (None) /hpf Blood Type A Positive Blood Type Confirm Blood Type Recheck No Previous Record Bld Type Recheck Status CABO Indicated Antibody Screen NEGATIVE Spec Expiration Date 07/22/2022230507/19/22 07/19/22 Range/Units 15:32 15:51 WBC (3.8-10.6) k/uL RBC (3.80-5.40) m/uL Hgb (11.4-16.0) gm/dL Hct (34.0-46.0) % MCV (80.0-100.0) fL MCH (25.0-35.0) pg MCHC (31.0-37.0) g/dL RDW (11.5-15.5) % Plt Count (150-450) k/uL MPV Neutrophils % % Lymphocytes % % Monocytes % % Eosinophils % % Basophils % % Neutrophils # (1.3-7.7) k/uL Lymphocytes # (1.0-4.8) k/uL Monocytes # (0-1.0) k/uL Eosinophils # (0-0.7) k/uL Basophils # (0-0.2) k/uL Sodium (137-145) mmol/L Potassium (3.5-5.1) mmol/L Chloride (98-107) mmol/L Carbon Dioxide (22-30) mmol/L Anion Gap mmol/L BUN (7-17) mg/dL Creatinine (0.52-1.04) mg/dL Est GFR (CKD-EPI)AfAm (>60 ml/min/1.73 sqM) Est GFR (CKD-EPI)NonAf (>60 ml/min/1.73 sqM) Glucose (74-99) mg/dL Calcium (8.4-10.2) mg/dL Total Bilirubin (0.2-1.3) mg/dL AST (14-36) U/L ALT (4-34) U/L Alkaline Phosphatase (38-126) U/L Total Protein (6.3-8.2) g/dL Albumin (3.5-5.0) g/dL HCG, Quant mIU/mL Urine Color Light Yellow Urine Appearance Clear (Clear) Urine pH 7.0 (5.0-8.0) Ur Specific [place] 1.014 (1.001-1.035) Urine Protein Negative (Negative) Urine Glucose (UA) 4+ H (Negative) Urine Ketones 1+ H (Negative) Urine Blood Negative (Negative) Urine Nitrite Negative (Negative) Urine Bilirubin Negative (Negative) Urine Urobilinogen <2.0 (<2.0) mg/dL Ur Leukocyte Esterase Small H (Negative) Urine RBC 1 (0-5) /hpf Urine WBC 8 H (0-5) /hpf Ur Squamous Epith Cells 2 (0-4) /hpf Urine Bacteria Occasional H (None) /hpf Urine Mucus Rare H (None) /hpf Blood Type Blood Type Confirm A Positive Blood Type Recheck Bld Type Recheck Status Antibody Screen Spec Expiration Date Disposition Clinical Impression: Threatened miscarriage, UTI in Disposition: HOME SELF-CARE Condition: Good Instructions (If sedation given, give patient instructions): Threatened Miscarriage (ED), Urinary Tract Infection in (ED) Additional Instructions: Take medication as directed. Take prescription for repeat beta hCG to local lab in 48 hrs. Follow-up with [employer] in 1-2 days. Return to the emergency department if you experience new, concerning, or worsening symptoms. Prescriptions: Cephalexin [Keflex] 250 mg PO Q6HR #20 cap Is patient prescribed a controlled substance at d/c from ED?: No Referrals: aLnce Anna MD [Primary Care Provider] - 1-2 days
[2022-07-19 18:04] LABS: HCG,Quantitative Serum 82337.1 mIU/mL
[2022-07-19 18:39] VITALS: BP 110/68; PULSE 92; RESP 18; TEMP 98.5
== END 2022-07-19 17:45 | disposition home or self-care (01) ==
LOC: EC 14:02
DX: O20.0 Threatened abortion (principal); O23.41 Unspecified infection of urinary tract in pregnancy, first trimester; O24.911 Unspecified diabetes mellitus in pregnancy, first trimester; O9A.511 Psychological abuse complicating pregnancy, first trimester; O99.321 Drug use complicating pregnancy, first trimester; N39.0 Urinary tract infection, site not specified; F41.9 Anxiety disorder, unspecified; F31.9 Bipolar disorder, unspecified; F12.90 Cannabis use, unspecified, uncomplicated; Z79.4 Long term (current) use of insulin
CPT/HCPCS: 36415; 76801; 80053; 81001; 84702; 85025; 86850; 86900; 86901; 99284